=== PATIENT | female | born 1990 | race Two or more races ===

== ENCOUNTER 2023-09-26 17:53 | Emergency (ER) | payer OTHER ==
[~2023-09-26] VITALS: Ht 157.5 cm; Wt 54.4 kg
[2023-09-26] MEDS ORDERED: predniSONE 20 MG TABLET PO ONE (18:45)
[2023-09-26] MEDS ORDERED: IPRATROPIUM BROMIDE 0.5 MG/2.5 ML NEBU NEB ONE (18:45)
[2023-09-26] MEDS ORDERED: ALBUTEROL SULFATE 2.5 MG/3 ML NEBU NEB ONE (18:45)
[2023-09-26] MEDS ORDERED: IPRATROPIUM BROMIDE 0.5 MG/2.5 ML NEBU ONE (18:46)
[2023-09-26] MEDS ORDERED: ALBUTEROL SULFATE 2.5 MG/3 ML NEBU ONE (18:46)
[2023-09-26 18:50] VITALS: O2SAT 94
[2023-09-26] MEDS ORDERED: predniSONE 20 MG TABLET ONE (18:54)
[2023-09-26 19:02] VITALS: O2SAT 99
[2023-09-26 19:05] VITALS: O2SAT 99
[2023-09-26] MEDS ORDERED: ALBU8.5H8 IH ×2 (19:09→19:47)
[2023-09-26] MEDS ORDERED: PRED20TA PO ×2 (19:09→19:47)
[2023-09-26] MEDS ORDERED: OSEL75CA PO ×2 (19:44→19:47)
[2023-09-26 20:00] VITALS: BP 106/54; O2SAT 99
== END 2023-09-26 20:00 | disposition home or self-care (01) ==
LOC: ER 17:53
DX: J20.8 Acute bronchitis due to other specified organisms (principal); B97.89 Other viral agents as the cause of diseases classified elsewhere; R07.89 Other chest pain; Z20.822 Contact with and (suspected) exposure to COVID-19; Z79.899 Other long term (current) drug therapy
CPT/HCPCS: 99284; 71045; 87426; 94640; J7512; A4606; A4663; J3590

== ENCOUNTER 2025-09-22 11:30 | Emergency (ER) | payer MEDICAID, OTHER ==
[~2025-09-22] VITALS: Ht 157.5 cm; Wt 46.7 kg
[~2025-09-22 11:30] MED LIST: ALBU8.5H8 IH; OSEL75CA PO; PRED20TA PO
[2025-09-22 11:31] VITALS: BP 106/70
[2025-09-22] MEDS ORDERED: BENZ200C53 PO (12:10)
[2025-09-22] MEDS ORDERED: PRED50TA PO (12:10)
[2025-09-22] MEDS ORDERED: ALBU18HF2 INH (12:10)
[2025-09-22] MEDS ORDERED: AZIT250T13 PO (12:43)
[2025-09-22 12:54] VITALS: BP 103/67; TEMP 98.4; O2SAT 98
== END 2025-09-22 12:55 | disposition home or self-care (01) ==
LOC: ER 11:39
DX: J20.8 Acute bronchitis due to other specified organisms (principal); B97.89 Other viral agents as the cause of diseases classified elsewhere; J18.9 Pneumonia, unspecified organism; J45.901 Unspecified asthma with (acute) exacerbation; Z79.52 Long term (current) use of systemic steroids
CPT/HCPCS: 99283; 71045; J7512; A4606; A4663